=== PATIENT | female | born 2005 | race Hispanic/Latino ===

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

== ENCOUNTER 2025-05-19 09:09 | Outpatient (CLI) | payer BC | END 2025-05-19 09:10 | disposition home or self-care (01) | LOC: CSHSLEEP 09:09 | PROVIDERS: ATTEND Advanced Practice Midwife | DX: G47.33 Obstructive sleep apnea (adult) (pediatric) (principal); R09.89 Other specified symptoms and signs involving the circulatory and respiratory systems; R51.9 Headache, unspecified; R06.83 Snoring; E66.9 Obesity, unspecified; Z68.42 Body mass index [BMI] 45.0-49.9, adult | CPT/HCPCS: 95811 ==

== ENCOUNTER 2025-08-05 09:51 | Outpatient (CLI) | payer BC | END 2025-08-05 09:52 | disposition home or self-care (01) | LOC: CSHDTY/OP 09:51 | PROVIDERS: ATTEND Nurse Practitioner Family | DX: Z71.3 Dietary counseling and surveillance (principal); Z68.41 Body mass index [BMI] 40.0-44.9, adult; E28.2 Polycystic ovarian syndrome; N83.8 Other noninflammatory disorders of ovary, fallopian tube and broad ligament; K76.0 Fatty (change of) liver, not elsewhere classified | CPT/HCPCS: 76700; 76856; 97802 ==